=== PATIENT | female | born 1935 | race Caucasian/White ===

== ENCOUNTER 2019-05-11 11:46 | Observation (INO) ==
--- NOTE | 2019-05-11 12:09 | Emergency Department Note ---
Disposition Clinical Impression: Chest pain Qualifiers: Chest pain type: unspecified Qualified Code(s): R07.9 - Chest pain, unspecified Disposition: Admitted As Inpatient Condition: Fair Time of Disposition: 15:26 General Adult HPI - General Chief complaint: ED Chest Pain Stated complaint: chest pain Time Seen by Provider: 05/11/19 11:58 Nursing Notes Reviewed: Yes Vital Signs Reviewed: Yes - History of Present Illness HPI Narrative: 83-year-old female with history of hypertension, diabetes, previous smoker who presents the emergency department with complaints of chest pain. Patient states she started to have chest pain approximately 5 days ago, lasted approximately 30 minutes. This started at rest then resolved on its own. She states she continues to have pressure in her chest as well as into her bilateral shoulders and back but she has no significant pain. She notes that she did not feel diaphoretic, short of breath at onset of pain. She has never had symptoms similar to this. She denies any history of blood clots. She does not take blood thinners. No previous cardiac history though she does have significant family history. She denies any fever, chills, nausea, vomiting, abdominal pain, dysuria, hematuria. Pain Scale: 6 - Related Data Home Medications Medication Instructions Recorded Confirmed Allopurinol [Zyloprim 300 MG] 300 mg PO DAILY 12/30/18 05/11/19 Carvedilol 25 mg PO BID 12/30/18 05/11/19 Fluticasone Propionate [Flovent 2 puff IH QID PRN 12/30/18 05/11/19 Hfa] Losartan Potassium [Cozaar] 100 mg PO DAILY 12/30/18 05/11/19 Polyethylene Glycol 3350 [MiraLAX] 17 gm PO DAILY PRN 12/30/18 05/11/19 Sitagliptin Phosphate [Januvia] 50 mg PO DAILY 12/30/18 05/11/19 glyBURIDE [GlyBURIDE] 5 mg PO BIDWM 12/30/18 05/11/19 Albuterol Sulfate [Proair Hfa] 1 puff IH Q4-6H PRN 04/27/19 05/11/19 Fluticasone Propionate Nasal 2 spr NS DAILY 04/27/19 05/11/19 [Flonase] hydroCHLOROthiazide 25 mg PO DAILY 04/27/19 05/11/19 [Hydrochlorothiazide] Ergocalciferol (VITAMIN D2) 50,000 unit PO MO 05/11/19 05/11/19 [Vitamin D2] Estrogens, Conjugated [Premarin 1 appl VG QWEEK 05/11/19 05/11/19 Cream] Previous Rx's Medication Instructions Recorded Ascorbic Acid [Vitamin C] 500 mg PO DAILY #30 tablet 04/01/19 Ferrous Sulfate [Iron] 325 mg PO DAILY #30 tablet 04/01/19 Allergies Allergy/AdvReac Type Severity Reaction Status Date / Time codeine AdvReac Palpitation Verified 05/11/19 15:23 s metformin AdvReac Diarrhea Verified 05/11/19 15:23 spironolactone AdvReac See Verified 05/11/19 15:23 Comments Review of Systems: ROS per history of present illness, all other systems reviewed and negative or normal. All systems ED: reviewed and negative except as stated. Review of Systems: As Per HPI Past Medical History - Past Medical History Medical history: Reports: diabetes, hyperlipidemia, hypertension, renal disease Surgical history: Reports: cholecystectomy, hysterectomy Psychiatric history: Reports: anxiety - Social History Smoking Status: Former smoker Smokeless Tobacco Status: No Alcohol use: Reports: none Drug use: Reports: none Physical Exam General: Conversant. No apparent distress. Follow commands. Appears stated age. Neck: No JVD. Trachea midline. Neck supple. Eyes: PERRL. No scleral icterus. HENT: Normocephalic and atraumatic. Moist mucus membranes. Cardiovascular: Regular rate and rhythm. Normal S1 and S2. No murmurs appreciated. Normal capillary refill. Extremities well perfused with 2+ distal pulses bilaterally. No edema. Pulmonary: Normal and equal breath sounds bilaterally, anteriorly and posteriorly. No wheezes, rales, or rhonchi. Not in respiratory distress. Speaks in full sentences. Abdomen: Soft, nondistended, and tontender. No bruits or masses. No guarding. Neuro: Alert and oriented x3. No slurred speech. No focal deficits noted. Skin: No rashes noted on visualized skin. Musculoskeletal: No bony abnormalities visualized. Moves all extremities. Psych: Normal mood. Pleasant. Makes appropriate eye contact. Course Vital Signs Temperature 97.7 F 05/11/19 11:51 Pulse Rate 68 05/11/19 11:51 Respiratory Rate 16 05/11/19 11:51 Blood Pressure 196/85 05/11/19 11:51 O2 Sat by Pulse Oximetry 99 05/11/19 11:51 Temperature 97.7 F 05/11/19 19:37 Pulse Rate 74 05/11/19 19:37 Respiratory Rate 14 05/11/19 19:37 Blood Pressure 172/76 05/11/19 19:37 O2 Sat by Pulse Oximetry 93 05/11/19 19:37 Oxygen Delivery Oxygen Delivery Room Air Medical Decision Making - [facility] Narrative Medical decision making narrative: 83-year-old female who presents emergency department with complaints of chest pain. Chest pain started possibly 5 days ago but does continue to persist. Vital signs are stable upon arrival, no evidence of tachycardia, hypotension, hypoxia. Laboratory evaluation shows anemia unchanged from prior, chronic kidney disease, troponin less than 0.03. EKG shows no acute ST or T wave abnormalities. Though the patient does not have evidence at this time of acute coronary injury do believe she warrants further inpatient admission for cardiac monitoring and cardiac evaluation. Discussed case with on-call hospitalist Dr. Luther who agrees with plan for admission and accepts the patient to the inpatient service. Patient agrees with and understands course of treatment plan including plan for admission. All questions answered. - Medical Records Medical records reviewed: Yes I reviewed the patient's medical records. - Lab Data Lab results reviewed: Yes I reviewed the patient's lab results. Result diagrams: 05/11/19 12:50 05/11/19 12:50 Lab Results 05/11/19 05/11/19 Range/Units 12:50 12:50 WBC 9.5 (4.3-11.1) K/mcL RBC 3.30 L (3.82-4.97) M/mcL Hgb 9.8 L (11.5-15.4) g/dL Hct 30.6 L (35.3-44.9) % MCV 92.7 (83.0-100.0) fL MCH 29.7 (28.0-33.3) pg MCHC 32.0 (31.6-35.5) g/dL RDW 16.0 H (11.5-14.5) % Plt Count 239 (140-400) K/mcL MPV 10.7 (9.4-12.4) fL Immature Gran % 1.1 (0-4) % Seg Neutrophils % 72.8 % Lymphocytes % 17.0 % Monocytes % 7.7 % Eosinophils % 1.2 % Basophils % 0.2 % Neutrophils # 6.9 (1.6-8.9) K/mcL Lymphocytes # 1.6 (0.6-4.6) K/mcL Monocytes # 0.7 (0.0-1.3) K/mcL Eosinophils # 0.1 (0.0-0.6) K/mcL Basophils # 0.0 (0.0-0.2) K/mcL Sodium 136 (136-145) mEq/L Potassium 4.2 (3.5-5.1) mEq/L Chloride 102 (98-107) mEq/L Carbon Dioxide 26 (23-29) mEq/L BUN 35 H (8-23) mg/dL Creatinine 1.30 H (0.60-1.20) mg/dL Est GFR ( Amer) 48 L (> 60) Est GFR (Non-Af Amer) 39 L (> 60) BUN/Creatinine Ratio 27 H (6-26) Glucose 332 H (70-105) mg/dL Calculated Osmolality 303 H (280-300) Calcium 10.2 (8.6-10.3) mg/dL Troponin I < 0.03 (< 0.04) ng/mL - Radiology Data Radiology results reviewed: Yes I reviewed the patient's radiology results. Chest X-Ray 05/11/19 11:54 IMPRESSION: No acute cardiopulmonary disease. D/ / 05/11/2019 13:52:48 Jared Meyers MD / leobardo Interpreting Provider: Jared Meyers MD - EKG Data EKG #1 EKG attestation: Yes I reviewed and interpreted this EKG. EKG results narrative: Sinus rhythm without acute ischemic ST or T wave abnormalities. Normal intervals. Attestation Statement - Attestation Attestation: I, William Benitez, examined this patient and my medical decision-making was reviewed with the [employer]/PA/Advanced Practice Nurse/Resident Physician. I agree with the documented findings, disposition and treatment plan as described except to the extent set forth below. 83-year-old female presents emergency Department with concerns of acute onset chest pain. Patient states the pain has been intermittent over the past 5 days. Patient reports the pain is in her anterior sternum chest and radiates to the bilateral shoulders. Patient denies syncopal episode, nausea, vomiting, abdominal pain, hematochezia, melena. No history of cardiac disease however she does have a family history that is significant for cardiac disease. Patient has a history of tobacco abuse hypertension, hyperlipidemia. Patient had a negative initial troponin. EKG did not show evidence of STEMI or other dysrhythmia. Patient will be admitted to the hospitalist for further care and evaluation.I reviewed the EKG with the resident and agree with the interpretation.
[2019-05-11 13:31] LABS: Basophils % 0.2 %; Eosinophils # 0.1 K/mcL (0.0-0.6); Eosinophils % 1.2 %; Hematocrit 30.6 % (35.3-44.9); Hemoglobin 9.8 g/dL (11.5-15.4); Immature Granulocytes % 1.1 % (0-4); Lymphocytes # 1.6 K/mcL (0.6-4.6); Mean Corpuscular Hemoglobin 29.7 pg (28.0-33.3); Mean Corpuscular Volume 92.7 fL (83.0-100.0); Mean Platelet Volume 10.7 fL (9.4-12.4); Monocytes # 0.7 K/mcL (0.0-1.3); Monocytes % 7.7 %; Neutrophils # 6.9 K/mcL (1.6-8.9); Platelet Count 239 K/mcL (140-400); Segmented Neutrophils % 72.8 %; White Blood Count 9.5 K/mcL (4.3-11.1)
[2019-05-11 13:48] LABS: BUN/Creatinine Ratio 27 (6-26); Blood Urea Nitrogen 35 mg/dL (8-23); Calcium 10.2 mg/dL (8.6-10.3); Carbon Dioxide 26 mEq/L (23-29); Chloride 102 mEq/L (98-107); Glucose 332 mg/dL (70-105); Osmolality,Calculated 303 (280-300); Potassium 4.2 mEq/L (3.5-5.1); Sodium 136 mEq/L (136-145); Troponin I < 0.03 ng/mL (< 0.04); eGFR For African Americans 48 (> 60); eGFR For Non-African Americans 39 (> 60)
[2019-05-11] MEDS ORDERED: Aspirin 81 MG TAB.CHEW PO ONE (14:27)
[2019-05-11] MEDS ORDERED: Naloxone 0.4 MG/ML INJ IVP PRN (15:43)
[2019-05-11] MEDS ORDERED: Acetaminophen 325 MG TABLET PO PRN (15:43)
[2019-05-11] MEDS ORDERED: Nitroglycerin 0.4 MG TAB.SUBL SL PRN (15:46)
--- NOTE | 2019-05-11 15:50 | Internal Med History&Physical ---
Date of Encounter: 05/11/19 Time of Encounter: 15:30 Internal Medicine - H&P: HPI Chief complaint: chest pain Admitted From: Emergency Dept Plans for Post Hospital Care: Home History of present illness: Ms. Carreon is a 83 year old female with a known past medical history of hypertension, hyperlipidemia, diabetes type II and CKD-3 pt presented to ER complaining about from last 2 days patient has been having intermittent chest pain. Patient stated her chest pain located sub sternal and right side of chest, radiating to her b/l neck and shoulder. Her CP was 7/10 in severity, intermittent and associated with SOB. Past Med Surg Social Fam HX - Past Medical History Medical history: diabetes, hyperlipidemia, hypertension, renal disease Psychiatric history: anxiety - Past Surgical History Surgical History: cholecystectomy, hysterectomy - Social History Smoking Status: Former smoker Smokeless Tobacco Status: No Alcohol use: none Drug use: none - Additional Family History Additional family history: Family hsitory reviewed and non contribuitory to current problem. Internal Medicine - H&P: Meds Allopurinol [Zyloprim 300 MG] 300 mg PO DAILY 12/30/18 [History] Carvedilol 25 mg PO BID 12/30/18 [History] Fluticasone Propionate [Flovent Hfa] 2 puff IH QID PRN 12/30/18 [History] Losartan Potassium [Cozaar] 100 mg PO DAILY 12/30/18 [History] Polyethylene Glycol 3350 [MiraLAX] 17 gm PO DAILY PRN 12/30/18 [History] Sitagliptin Phosphate [Januvia] 50 mg PO DAILY 12/30/18 [History] glyBURIDE [GlyBURIDE] 5 mg PO BIDWM 12/30/18 [History] Ascorbic Acid [Vitamin C] 500 mg PO DAILY #30 tablet 04/01/19 [Rx] Ferrous Sulfate [Iron] 325 mg PO DAILY #30 tablet 04/01/19 [Rx] Albuterol Sulfate [Proair Hfa] 1 puff IH Q4-6H PRN 04/27/19 [History] Fluticasone Propionate Nasal [Flonase] 2 spr NS DAILY 04/27/19 [History] hydroCHLOROthiazide [Hydrochlorothiazide] 25 mg PO DAILY 04/27/19 [History] Ergocalciferol (VITAMIN D2) [Vitamin D2] 50,000 unit PO MO 05/11/19 [History] Estrogens, Conjugated [Premarin Cream] 1 appl VG QWEEK 05/11/19 [History] Allergy/AdvReac Type Severity Reaction Status Date / Time codeine AdvReac Palpitation Verified 05/11/19 15:23 s metformin AdvReac Diarrhea Verified 05/11/19 15:23 spironolactone AdvReac See Verified 05/11/19 15:23 Comments All Systems PM: A 10-system review of systems was performed and is negative for pertinent findings except as documented above in the HPI. Review of systems: All the systems are reviewed everything is benign except the systems and symptoms I mentioned in the history of present illness - Constitutional Vitals: Temp Pulse Resp BP Pulse Ox 97.7 F 68 15 173/86 100 05/11/19 12:13 05/11/19 15:00 05/11/19 15:00 05/11/19 15:00 05/11/19 15:00 General appearance: Present: cooperative, A&O X 3, no acute distress, answers questions appropriately Exam: a - Head Head exam: Present: atraumatic, normal inspection - Neck Neck exam general surgery: Present: supple - Respiratory Respiratory exam: Present: decreased breath sounds. Absent: rales, respiratory distress, rhonchi, wheezes - Cardiovascular Cardiovascular exam: Present: RRR, +S1, +S2. Absent: tachycardia - GI/Abdominal GI/Abdominal exam: Present: normal bowel sounds, soft. Absent: guarding, rebound, rigid, tenderness - Extremities Exam Extremities exam: Present: normal inspection. Absent: calf tenderness, pedal edema, tenderness - Back Exam Back exam: Absent: CVA tenderness (L), CVA tenderness (R) - Neurological Exam Neurological exam: Present: alert, oriented X3 - Psychiatric Psychiatric exam: Present: normal affect, normal mood - Skin Skin exam: Absent: rash Internal Med - H&P Results - Labs CBC & Chem 7: 05/11/19 12:50 05/11/19 12:50 Labs: Short CBC 05/11/19 Range/Units 12:50 WBC 9.5 (4.3-11.1) K/mcL Hgb 9.8 L (11.5-15.4) g/dL Hct 30.6 L (35.3-44.9) % Plt Count 239 (140-400) K/mcL Neutrophils # 6.9 (1.6-8.9) K/mcL BMP 05/11/19 12:50 Sodium 136 Potassium 4.2 Chloride 102 Carbon Dioxide 26 BUN 35 H Creatinine 1.30 H Glucose 332 H Calcium 10.2 Cardiac Enzymes 05/11/19 Range/Units 12:50 Troponin I < 0.03 (< 0.04) ng/mL - Impressions ITS Impressions Chest X-Ray 05/11/19 11:54 IMPRESSION: No acute cardiopulmonary disease. D/ / 05/11/2019 13:52:48 Jared Meyers MD / leobardo Interpreting Provider: Jared Meyers MD - Assessment and Plan (1) Chest pain Current Visit: Yes Status: Acute Assessment and plan: Will admit the pt into Tele for observation Will place pt on teletypesetter monitor check serial troponin so far negative troponin EKG reviewed - NSR, no acute ST, T changes noticed will start pt on ASA and Nitro PRN for pain Will check FLP in AM Will get stress test in AM since pt is high risk for ACS Qualifiers: Chest pain type: unspecified Qualified Code(s): R07.9 - Chest pain, unspecified (2) CKD stage 3 due to type 2 diabetes mellitus Current Visit: Yes Status: Acute Assessment and plan: stable Cr.. At baseline avoid nephrotoxic medications (3) HTN (hypertension) Current Visit: Yes Status: Acute Assessment and plan: Blood pressure fairly controlled with current home medications resumed all home medications started her on IV hydralazine as needed Qualifiers: Hypertension type: essential hypertension Qualified Code(s): I10 - Essential (primary) hypertension (4) DM2 (diabetes mellitus, type 2) Current Visit: Yes Status: Acute Assessment and plan: on ADA diet on ISS will check hemoglobin A-1 C Qualifiers: Diabetes mellitus intermission coordinator insulin use: without senior living use Diabetes mellitus complication status: with kidney complications Diabetes mellitus complication detail: with chronic kidney disease Chronic kidney disease stage: stage 3 (moderate) Qualified Code(s): E11.22 - Type 2 diabetes mellitus with diabetic chronic kidney disease; N18.3 - Chronic kidney disease, stage 3 (moderate) (5) Anemia in chronic kidney disease Current Visit: No Status: Acute Assessment and plan: Stable Hb at baseline Qualifiers: Chronic kidney disease stage: stage 3 (moderate) Qualified Code(s): N18.3 - Chronic kidney disease, stage 3 (moderate); D63.1 - Anemia in chronic kidney disease - Time Spent With Patient Total time spent is greater than 50% in coordination of care (as documented) at patient's floor/unit and/or counseling patient:
[2019-05-11] MEDS ORDERED: D5% in Water 1,000 ML IVC PRN (15:55)
[2019-05-11] MEDS ORDERED: Dextrose Gel 15 GM/37.5 ML TUBE PO PRN ×2 (15:55)
[2019-05-11] MEDS ORDERED: *HR* Dextrose 50 % in Water (Syg) 50 ML SYRINGE IVP PRN (15:55)
[2019-05-11] MEDS: Insulin LISPRO 300 UNITS/3 ML VIAL SQ SCH (16:24)
[2019-05-11 17:21] LABS: Estimated Average Glucose 203 mg/dl
[2019-05-11] MEDS ORDERED: Insulin LISPRO 300 UNITS/3 ML VIAL SQ SCH (21:00)
[2019-05-12 05:29] LABS: Hematocrit 28.5 % (35.3-44.9); Hemoglobin 9.2 g/dL (11.5-15.4); Mean Corpuscular HGB Conc 32.3 g/dL (31.6-35.5); Mean Corpuscular Hemoglobin 29.3 pg (28.0-33.3); Mean Corpuscular Volume 90.8 fL (83.0-100.0); Mean Platelet Volume 9.8 fL (9.4-12.4); Platelet Count 212 K/mcL (140-400); Red Blood Count 3.14 M/mcL (3.82-4.97); Red Cell Distribution Width 15.9 % (11.5-14.5); White Blood Count 8.4 K/mcL (4.3-11.1)
[2019-05-12 05:47] LABS: BUN/Creatinine Ratio 22 (6-26); Blood Urea Nitrogen 34 mg/dL (8-23); Calcium 9.5 mg/dL (8.6-10.3); Carbon Dioxide 27 mEq/L (23-29); Chloride 103 mEq/L (98-107); Chol/HDL Ratio 6.8 (0-4.9); Cholesterol 177 mg/dL (< 200); Glucose 178 mg/dL (70-105); HDL Cholesterol 26 mg/dL (40-59); Osmolality,Calculated 300 (280-300); Sodium 139 mEq/L (136-145); Triglycerides 451 mg/dL (< 150); eGFR For African Americans 40 (> 60); eGFR For Non-African Americans 33 (> 60)
[2019-05-12] MEDS ORDERED: Regadenoson 0.4 MG/5 ML SYRINGE IVP ONE (06:28)
--- NOTE | 2019-05-12 07:35 | Electrocardiograph Report ---
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
[2019-05-12] MEDS ORDERED: hydroCHLOROthiazide 25 MG TABLET PO SCH (09:00)
[2019-05-12] MEDS ORDERED: Aspirin Enteric Coated 81 MG Tablet PO SCH (09:00)
[2019-05-12] MEDS ORDERED: Fluticasone Propionate Nasal 50 MCG/SPRAY BOTTLE NS SCH (09:00)
[2019-05-12] MEDS ORDERED: Ascorbic Acid 500 MG TABLET PO SCH (09:00)
[2019-05-12] MEDS: Insulin LISPRO 300 UNITS/3 ML VIAL SQ SCH ×2 (10:04→10:33)
[2019-05-12 12:52] VITALS: BP 157/78
--- NOTE | 2019-05-12 12:52 | Discharge Summary ---
- NOTES TO OUTPATIENT PROVIDER Notes to Outpatient Provider: f/u with PCP in one week. Date of Encounter: 05/12/19 Time of Encounter: 12:47 - Discharge Diagnosis (1) Chest pain Priority: Primary Status: Acute Qualifiers: Chest pain type: unspecified Qualified Code(s): R07.9 - Chest pain, unspecified (2) CKD stage 3 due to type 2 diabetes mellitus Priority: Secondary Status: Acute (3) HTN (hypertension) Priority: Secondary Status: Acute Qualifiers: Hypertension type: essential hypertension Qualified Code(s): I10 - Essential (primary) hypertension (4) DM2 (diabetes mellitus, type 2) Priority: Secondary Status: Acute Qualifiers: Diabetes mellitus ad terminal makeup operator insulin use: without ad terminal makeup operator use Diabetes mellitus complication status: with kidney complications Diabetes mellitus complication detail: with chronic kidney disease Chronic kidney disease stage: stage 3 (moderate) Qualified Code(s): E11.22 - Type 2 diabetes mellitus with diabetic chronic kidney disease; N18.3 - Chronic kidney disease, stage 3 (moderate) (5) Anemia in chronic kidney disease Priority: Secondary Status: Acute Qualifiers: Chronic kidney disease stage: stage 3 (moderate) Qualified Code(s): N18.3 - Chronic kidney disease, stage 3 (moderate); D63.1 - Anemia in chronic kidney disease Hospital course: Ms. Carreon is a 83 year old female with a known past medical history of hypertension, hyperlipidemia, diabetes type II and CKD-3 pt presented to ER complaining about from last 2 days patient has been having intermittent chest pain. Patient stated her chest pain located sub sternal and right side of chest, radiating to her b/l neck and shoulder. Her CP was 7/10 in severity, intermittent and associated with SOB. She was admitted in the hospital and placed her on library monitor. Her serial troponin came back as negative. Her EKG did not show any acute ischemic changes. Since she is high risk for, pt did go for nuclear stress test which came back as negative for ischemia / infarction. - Time Spent with Patient Total time spent providing and/or coordinating discharge services: - Discharge Medications Prescriptions: New Aspirin Enteric Coated [Aspirin EC] 81 mg PO DAILY #30 tablet. Continued Allopurinol [Zyloprim 300 MG] 300 mg PO DAILY Carvedilol 25 mg PO BID Fluticasone Propionate [Flovent Hfa] 2 puff IH QID PRN PRN Reason: Shortness Of Breath glyBURIDE [GlyBURIDE] 5 mg PO BIDWM Losartan Potassium [Cozaar] 100 mg PO DAILY Polyethylene Glycol 3350 [MiraLAX] 17 gm PO DAILY PRN PRN Reason: Constipation Sitagliptin Phosphate [Januvia] 50 mg PO DAILY Ferrous Sulfate [Iron] 325 mg PO DAILY #30 tablet Ascorbic Acid [Vitamin C] 500 mg PO DAILY #30 tablet Albuterol Sulfate [Proair Hfa] 1 puff IH Q4-6H PRN PRN Reason: Shortness Of Breath Fluticasone Propionate Nasal [Flonase] 2 spr NS DAILY Ergocalciferol (VITAMIN D2) [Vitamin D2] 50,000 unit PO MO Estrogens, Conjugated [Premarin Cream] 1 appl VG QWEEK Discontinued hydroCHLOROthiazide [Hydrochlorothiazide] 25 mg PO DAILY Home Medications: Allopurinol [Zyloprim 300 MG] 300 mg PO DAILY 12/30/18 [History] Carvedilol 25 mg PO BID 12/30/18 [History] Fluticasone Propionate [Flovent Hfa] 2 puff IH QID PRN 12/30/18 [History] Losartan Potassium [Cozaar] 100 mg PO DAILY 12/30/18 [History] Polyethylene Glycol 3350 [MiraLAX] 17 gm PO DAILY PRN 12/30/18 [History] Sitagliptin Phosphate [Januvia] 50 mg PO DAILY 12/30/18 [History] glyBURIDE [GlyBURIDE] 5 mg PO BIDWM 12/30/18 [History] Ascorbic Acid [Vitamin C] 500 mg PO DAILY #30 tablet 04/01/19 [Rx] Ferrous Sulfate [Iron] 325 mg PO DAILY #30 tablet 04/01/19 [Rx] Albuterol Sulfate [Proair Hfa] 1 puff IH Q4-6H PRN 04/27/19 [History] Fluticasone Propionate Nasal [Flonase] 2 spr NS DAILY 04/27/19 [History] Ergocalciferol (VITAMIN D2) [Vitamin D2] 50,000 unit PO MO 05/11/19 [History] Estrogens, Conjugated [Premarin Cream] 1 appl VG QWEEK 05/11/19 [History] Aspirin Enteric Coated [Aspirin EC] 81 mg PO DAILY #30 tablet. 05/12/19 [Rx] Allergies/Adverse Reactions: Allergy/AdvReac Type Severity Reaction Status Date / Time codeine AdvReac Palpitation Verified 05/11/19 15:23 s metformin AdvReac Diarrhea Verified 05/11/19 15:23 spironolactone AdvReac See Verified 05/11/19 15:23 Comments Date of admission: 05/11/19 15:13 Primary care physician: Vu Shaw MD - Constitutional Vitals: Temp Pulse Resp BP Pulse Ox 97.7 F 66 20 162/78 93 05/12/19 10:23 05/12/19 10:23 05/12/19 10:23 05/12/19 10:23 05/12/19 10:23 General appearance: Present: cooperative, A&O X 3, no acute distress, answers questions appropriately Exam: Gen: Alert, awake, Oriented to time,place and person Chest: Diminished breath sounds B/L, No wheezing, No crackles, No rales Heart: S1S2+ RRR No murmurs Abd: Soft, NT, BS +, No organomegaly Ext: No edema, pulses are palpable, No calf tenderness Neuro : No acute focal neuro deficits noticed Skin: No rash. - Patient Status Disposition: Home, Self-Care Condition: Good Overall status at discharge: patient is back to baseline - Discharge Instructions Follow Up With: Vu Shaw MD [Primary Care Provider] - - Diet and Activity Activity: increase activity as tolerated Diet: low salt diet
[2019-05-18] MEDS ORDERED: Estrogens, Conjugated CREAM 30 GM TUBE VG SCH (09:00)
[2019-05-18] MEDS ORDERED: Ergocalciferol (VIT D2) 50,000 UNIT (1.25MG) CAP PO SCH (09:00)
== END 2019-05-12 14:08 | disposition home or self-care (01) ==
LOC: 3BNU 11:46 → EMEROOARM 11:46 → SUATTDRO 15:13 → 3BNU 15:33
PROVIDERS: ADMIT Internal Medicine; ATTEND Family Medicine

== ENCOUNTER 2020-05-22 10:38 | Observation (INO) ==
[2020-05-22 11:24] LABS: Basophils % 0.3 %; Eosinophils # 0.1 K/mcL (0.0-0.6); Eosinophils % 1.1 %; Hematocrit 32.2 % (35.3-44.9); Hemoglobin 9.7 g/dL (11.5-15.4); Lymphocytes # 1.4 K/mcL (0.6-4.6); Mean Corpuscular HGB Conc 30.1 g/dL (31.6-35.5); Mean Corpuscular Volume 92.8 fL (83.0-100.0); Mean Platelet Volume 10.8 fL (9.4-12.4); Monocytes # 0.9 K/mcL (0.0-1.3); Monocytes % 9.7 %; Neutrophils # 6.9 K/mcL (1.6-8.9); Platelet Count 211 K/mcL (140-400); Red Blood Count 3.47 M/mcL (3.82-4.97); Red Cell Distribution Width 16.7 % (11.5-14.5); Segmented Neutrophils % 72.9 %; White Blood Count 9.5 K/mcL (4.3-11.1)
[2020-05-22 11:45] LABS: BUN/Creatinine Ratio 22 (6-26); Blood Urea Nitrogen 36 mg/dL (8-23); Calcium 9.8 mg/dL (8.6-10.3); Carbon Dioxide 23 mEq/L (23-29); Chloride 107 mEq/L (98-107); Glucose 254 mg/dL (70-105); Osmolality,Calculated 305 (280-300); Potassium 4.7 mEq/L (3.5-5.1); Sodium 139 mEq/L (136-145); Troponin I < 0.03 ng/mL (< 0.04); eGFR For African Americans 37 (> 60); eGFR For Non-African Americans 30 (> 60)
[2020-05-22 11:52] LABS: Bacteria,Urine Few per hpf (None-Few); Bilirubin,Urine Negative (Negative); Blood,Urine Negative (Negative); Clarity,Urine Clear (Clear); Color,Urine Light-Yellow (Yellow); Glucose,Urine (UA) Normal (Normal); Hyaline Casts,Urine Moderate per lpf (None Seen); Ketones,Urine Negative (Negative); Leukocyte Esterase,Urine Negative (Negative); Nitrite,Urine Negative (Negative); PH,Urine 5.5 pH Units (5.0-8.0); Protein,Urine 100 mg/dL (Neg-Trace); RBC,Urine 0-3 per hpf (0-3); Specific Gravity,Urine 1.017 (1.010-1.025); Squamous Epithelial Cell,Urine Few per hpf (None-Few); Urobilinogen,Urine Normal (Normal); WBC,Urine 0-3 per hpf (0-3)
[2020-05-22] MEDS ORDERED: 0.9 % Sodium Chloride 1,000 ML IVC ONE (13:01)
[2020-05-22] MEDS ORDERED: Aspirin 325 MG TABLET PO ONE ×2 (13:12→15:52)
[2020-05-22] MEDS ORDERED: D5% in Water 1,000 ML IVC PRN (13:50)
[2020-05-22] MEDS ORDERED: *HR* Dextrose 50 % in Water (Vial) 50 ML VIAL IVP PRN (13:50)
[2020-05-22] MEDS ORDERED: Naloxone 0.4 MG/ML INJ IVP PRN (13:50)
[2020-05-22] MEDS ORDERED: Dextrose Gel 15 GM/37.5 ML TUBE PO PRN ×2 (13:50)
[2020-05-22] MEDS ORDERED: Perflutren Lipid Microsphere 1.3 ML in 0.9 % Sodium Chloride 8.7 ML IVP PRN (16:01)
[2020-05-22] MEDS: Insulin LISPRO 300 UNITS/3 ML VIAL SQ SCH (16:54)
[2020-05-22] MEDS: *HR* Heparin 5,000 UNIT/ML VIAL SQ SCH (18:22)
[2020-05-22] MEDS ORDERED: Simethicone 80 MG TAB.CHEW PO PRN (21:31)
[2020-05-23] MEDS ORDERED: hydrALAZINE 10 MG TABLET PO ONE (01:33)
[2020-05-23 04:26] LABS: Hematocrit 32.5 % (35.3-44.9); Hemoglobin 9.9 g/dL (11.5-15.4); Mean Corpuscular HGB Conc 30.5 g/dL (31.6-35.5); Mean Corpuscular Hemoglobin 27.7 pg (28.0-33.3); Platelet Count 220 K/mcL (140-400); Red Blood Count 3.57 M/mcL (3.82-4.97); Red Cell Distribution Width 16.9 % (11.5-14.5); White Blood Count 9.4 K/mcL (4.3-11.1)
[2020-05-23 04:27] LABS: Prothrombin Time 11.9 Seconds (9.4-12.1)
[2020-05-23 04:45] LABS: Alanine Aminotransferase 10 Units/L (7-52); Albumin 3.5 g/dL (3.5-5.7); Albumin/Globulin Ratio 1.1 (1.1-2.2); Alkaline Phosphatase 57 Units/L (34-104); Aspartate Amino Transferase 12 Units/L (13-39); BUN/Creatinine Ratio 19 (6-26); Bilirubin,Total 0.3 mg/dL (0.3-1.0); Blood Urea Nitrogen 26 mg/dL (8-23); Calcium 9.5 mg/dL (8.6-10.3); Carbon Dioxide 20 mEq/L (23-29); Chloride 110 mEq/L (98-107); Chol/HDL Ratio 6.8 (0-4.9); Cholesterol 177 mg/dL (< 200); Globulin 3.1 g/dL (2.4-3.5); Glucose 135 mg/dL (70-105); HDL Cholesterol 26 mg/dL (40-59); LDL Cholesterol,Calculated 78 mg/dL (< 100); Osmolality,Calculated 297 (280-300); Potassium 3.9 mEq/L (3.5-5.1); Sodium 140 mEq/L (136-145); Total Protein 6.6 g/dL (6.4-8.9); Triglycerides 365 mg/dL (< 150); Troponin I < 0.03 ng/mL (< 0.04); eGFR For African Americans 46 (> 60); eGFR For Non-African Americans 38 (> 60)
[2020-05-23] MEDS ORDERED: Acetaminophen 325 MG TABLET PO ONE (05:29)
[2020-05-23] MEDS: *HR* Heparin 5,000 UNIT/ML VIAL SQ SCH (05:36)
[2020-05-23] MEDS: Insulin LISPRO 300 UNITS/3 ML VIAL SQ SCH ×2 (10:52→12:23)
[2020-05-23 11:13] LABS: Estimated Average Glucose 214 mg/dl
[2020-05-23] MEDS ORDERED: Acetaminophen 325 MG TABLET PO PRN (13:33)
[2020-05-23 14:53] VITALS: BP 148/62
[2020-05-23 15:35] LABS: Folate > 22.3 ng/mL (3.0-16.0); Vitamin B12 > 1500 pg/mL (250-1100)
[2020-05-23] MEDS ORDERED: Insulin LISPRO 300 UNITS/3 ML VIAL SQ SCH (21:00)
== END 2020-05-23 17:40 | disposition home or self-care (01) ==
LOC: EMEROOARM 10:38 → 3BNU 10:38 → SUATTDRO 14:24 → 3BNU 14:43
PROVIDERS: ADMIT Family Medicine; ATTEND Nurse Practitioner Adult Health